=== PATIENT | male | born 1990 | race Asian ===

== ENCOUNTER 2019-06-11 16:16 | Emergency (ER) | payer SELFPAY ==
[~2019-06-11] VITALS: Ht 170.2 cm; Wt 106.6 kg
[2019-06-11 16:16] VITALS: BP 159/94
--- NOTE | 2019-06-11 16:36 | NUR ---
PT SEEN AND EXAMINED BY .
[2019-06-11 16:59] LABS: BASOPHILS # (AUTO) 0.1 /CMM (0.0-0.2); BASOPHILS % (AUTO) 0.8 % (0.0-2.0); HEMATOCRIT 46 % (39-51); HEMOGLOBIN 15.7 g/dL (13.5-17.5); LYMPHOCYTES # (AUTO) 2.4 /CMM (0.8-4.8); LYMPHOCYTES % (AUTO) 30.1 % (20.0-44.0); MEAN CORPUSCULAR HGB CONC 34 g/dl (31.0-36.0); MEAN CORPUSCULAR VOLUME 92 fL (80-96); MONOCYTES % (AUTO) 12.4 % (2.0-12.0); NEUTROPHILS # (AUTO) 4.3 /CMM (1.8-8.9); NEUTROPHILS % (AUTO) 54.7 % (43.0-81.0); PLATELET COUNT (AUTO) 172 /CMM (150-450); RED BLOOD CELL COUNT(AUTO) 4.97 MIL/uL (4.5-6.0); WHITE BLOOD COUNT (AUTO) 7.8 K/uL (4.3-11.0)
[2019-06-11 17:06] LABS: CALCIUM, SERUM 8.5 mg/dL (8.5-10.1); CREATININE 0.8 mg/dL (0.6-1.3); POTASSIUM 4.2 mmol/L (3.5-5.1)
--- NOTE | 2019-06-11 17:29 | NUR ---
Patient discharged to home in stable condition. Written and verbal after care instructions given. Patient verbalizes understanding of instruction.
== END 2019-06-11 17:30 | disposition home or self-care (01) ==
LOC: ER 16:17
DX: I10 Essential (primary) hypertension (principal); Z98.890 Other specified postprocedural states
CPT/HCPCS: 36415; 80048-TC; 85025-TC

== ENCOUNTER 2019-10-23 17:15 | Emergency (ER) | payer BC, OTHER ==
[~2019-10-23] VITALS: Ht 172.7 cm; Wt 106.6 kg
--- NOTE | 2019-10-23 17:25 | NUR ---
PT BIB SELF C/OP SORETHROAT AND FEVER SINCE YESTERDAY, PT IS AAOX4, NOT IN RESPIRATORY DISTRESS, HOOKED TO MONITOR, KEPT RESTED AND COMFORTABLE, WILL CONTINUE TO MONITOR.
--- NOTE | 2019-10-23 17:30 | NUR ---
PT SEEN AND EXAMINED BY .
--- NOTE | 2019-10-23 17:51 | NUR ---
COVID SWAB OBTAINED AND SENT TO LAB.
--- NOTE | 2019-10-23 17:55 | NUR ---
IV LINE ESTABLISHED, BLOOD DRAWN AND SENT TO LAB.
[2019-10-23] MEDS ORDERED: ACETAMINOPHEN ES 500 MG TABLET PO ONE (18:00)
[2019-10-23] MEDS ORDERED: ACETAMINOPHEN ES 500 MG TABLET ONE (18:04)
[2019-10-23] MEDS ORDERED: LISINOPRIL (20MG) 20 MG TABLET PO STA (18:08)
[2019-10-23 18:09] LABS: BASOPHILS # (AUTO) 0.1 /CMM (0.0-0.2); BASOPHILS % (AUTO) 0.7 % (0.0-2.0); EOSINOPHILS % (AUTO) 1.3 % (0.0-6.0); HEMATOCRIT 49 % (39-51); HEMOGLOBIN 16.9 g/dL (13.5-17.5); LYMPHOCYTES # (AUTO) 2.1 /CMM (0.8-4.8); LYMPHOCYTES % (AUTO) 27.2 % (20.0-44.0); MEAN CORPUSCULAR HGB CONC 35 g/dl (31.0-36.0); MEAN CORPUSCULAR VOLUME 91 fL (80-96); MONOCYTES # (AUTO) 1.6 /CMM (0.1-1.30); MONOCYTES % (AUTO) 20.8 % (2.0-12.0); NEUTROPHILS # (AUTO) 3.8 /CMM (1.8-8.9); PLATELET COUNT (AUTO) 144 /CMM (150-450); RED BLOOD CELL COUNT(AUTO) 5.36 MIL/uL (4.5-6.0); WHITE BLOOD COUNT (AUTO) 7.6 K/uL (4.3-11.0)
--- NOTE | 2019-10-23 18:10 | NUR ---
PHARMACY TECHNICIAN PER DIEM AT BEDSIDE FOR XRAY.
[2019-10-23 18:20] LABS: CARBON DIOXIDE 26 mmol/L (21-32); CHLORIDE 100 mmol/L (98-107); CREATININE 0.8 mg/dL (0.6-1.3); GLUCOSE 137 mg/dL (74-106); POTASSIUM 3.5 mmol/L (3.5-5.1); SODIUM SERUM 137 mmol/L (136-145); UREA NITROGEN, BLOOD 12 mg/dL (7-18)
[2019-10-23 18:35] LABS: ALANINE AMINOTRANSFERASE 104 U/L (12-78); ALBUMIN 3.7 g/dL (3.4-5.0); ALKALINE PHOSPHATASE 118 U/L (46-116); ASPARTATE AMINOTRANSFERASE 73 U/L (15-37); B-TYPE NATRIURETIC PEPTIDE 23 PG/ML (0-125); BILIRUBIN,TOTAL 0.7 mg/dL (0.2-1.0); TOTAL PROTEIN, SERUM 8.7 g/dL (6.4-8.2)
[2019-10-23 18:35] LABS: ABG BASE EXCESS 0.9 mmol/L; ABG OXYGEN SATURATION 94.1 % (92.0-98.5); ABG PCO2 39.6 mmHg (35.0-45.0); ABG PH 7.422 (7.350-7.450); ABG PO2 71.8 mmHg (75.0-100.0); AaDO2 30.5 mmHg; COHb 0.3 % (0.5-1.5); MetHb 0.5 % (0.0-1.5); O2Hb 93.3 % (94.0-97.0); SITE, ABG Right Radial; VENT MODE, BG RA
[2019-10-23] MEDS ORDERED: IV NS 0.9% 1,000 ML IV ONE (19:00)
[2019-10-23] MEDS ORDERED: predniSONE 20 MG TABLET PO ONE (19:00)
[2019-10-23] MEDS ORDERED: AZITHROMYCIN 250 MG TABLET PO ONE (19:00)
[2019-10-23] MEDS ORDERED: predniSONE 20 MG TABLET ONE (19:05)
[2019-10-23] MEDS ORDERED: AZITHROMYCIN 250 MG TABLET ONE (19:05)
[2019-10-23 19:12] LABS: D-DIMER 0.89 mg/L(FEU (0.17-0.50)
--- NOTE | 2019-10-23 19:17 | NUR ---
REPORT GIVEN TO BARBARA KEEN FOR FAUSTO.
[2019-10-23 19:18] LABS: APPEARANCE,URINE Clear (CLEAR); BILIRUBIN,URINE Negative (NEGATIVE); BLOOD, URINE Trace-lysed Ery/uL (NEGATIVE); COLOR,URINE Yellow (YELLOW); KETONES,URINE Negative (NEGATIVE); LEUKOCYTE ESTERASE ,URINE Negative (NEGATIVE); NITRITE, URINE Negative (NEGATIVE); PROTEIN,URINE >=300 mg/dl (NEGATIVE); UGLUCOSE Negative (NEGATIVE); UROBILINOGEN,URINE 0.2 EU/dL (0.2)
[2019-10-23 19:27] LABS: BACTERIA,URINE None seen /HPF (None Seen); RBC,URINE 0-2 /HPF (0-2); SQUAMOUS EPITHELIAL CELL,UR Few /HPF (None Seen); WBC,URINE 0-2 /HPF (0-3)
[2019-10-23 19:28] LABS: BAND % (MANUAL) 6 % (0.0-5.0); EOSINOPHILS % (MANUAL) 4 % (0-4); LYMPHOCYTES % (MANUAL) 15 % (16-48); MONOCYTES % (MANUAL) 13 % (0-11.0); MYELOCYTES % 1 % (0-0); NEUTROPHILS % (MANUAL) 61 (42-76)
--- NOTE | 2019-10-23 19:45 | NUR ---
Patient discharged to home in stable condition. Written and verbal after care instructions given. Patient verbalizes understanding of instruction and RX. IV removed. Catheter intact and site benign. Pressure and 4x4 applied to site. No bleeding noted.
[2019-10-23 19:53] LABS: CREATINE KINASE, TOTAL 432 U/L (39-308); FERRITIN 1625 ng/mL (8-388)
[2019-10-23 19:54] LABS: C-REACTIVE PROTEIN 1.4 mg/dL (0.0-0.9)
[2019-10-23 21:28] VITALS: BP 132/78
== END 2019-10-23 21:28 | disposition home or self-care (01) ==
LOC: ER 17:15
DX: U07.1 COVID-19 (principal); R50.9 Fever, unspecified; J02.9 Acute pharyngitis, unspecified; I10 Essential (primary) hypertension; R00.0 Tachycardia, unspecified; I45.2 Bifascicular block
CPT/HCPCS: 0099U; 36415; 36600; 71045; 80053; 81001; 82550; 82553; 82728; 83605; 83615; 83880; 84145; 84484; 85025; 85378; 85730; 86140; 87040 ×2; 87086; 87635; 93005; 96360; 99285; J3490; J7030; J7512; 81000-TC